=== PATIENT | female | born 1990 | race Caucasian/White ===

== ENCOUNTER 2022-09-25 19:01 | Outpatient (REF) | payer OTHER, SELFPAY ==
[2022-10-01 13:19] LABS: Age Gdln ACOG Testing Note (.); HPV Aptima Positive (Negative); IGP, Aptima HPV, rfx 16/18,45 Note (.)
== END 2022-09-25 19:02 | disposition home or self-care (01) ==
LOC: LAB 19:01
PROVIDERS: Visit Provider Obstetrics & Gynecology
DX: Z12.4 Encounter for screening for malignant neoplasm of cervix (principal); Z11.51 Encounter for screening for human papillomavirus (HPV)
CPT/HCPCS: 87624; G0145

== ENCOUNTER 2023-04-10 12:16 | Outpatient (REF) | payer OTHER, SELFPAY | END 2023-04-10 12:17 | disposition home or self-care (01) | LOC: LAB 12:16 | PROVIDERS: Visit Provider Obstetrics & Gynecology | DX: R87.612 Low grade squamous intraepithelial lesion on cytologic smear of cervix (LGSIL) (principal) | CPT/HCPCS: 88305 ==

== ENCOUNTER 2023-11-04 18:51 | Outpatient (REF) | payer OTHER, SELFPAY | END 2023-11-04 18:52 | disposition home or self-care (01) | LOC: LAB 18:51 | PROVIDERS: Visit Provider Obstetrics & Gynecology | DX: R87.612 Low grade squamous intraepithelial lesion on cytologic smear of cervix (LGSIL) (principal) | CPT/HCPCS: 87624; 88175 ==